=== PATIENT | female | born 1970 | race African-American/Black ===

== ENCOUNTER 2016-09-27 06:41 | Inpatient (IN) | payer BC ==
[2016-09-26 10:37] VITALS: BMI 47.9
[2016-09-27] MEDS ORDERED: MIDAZOLAM HCL 2 MG/2 ML SINGLE DOSE VIAL ONE (08:00)
[2016-09-27] MEDS ORDERED: PROPOFOL 20 ML ONE (08:06)
[2016-09-27] MEDS ORDERED: ROCURONIUM BROMIDE 50 MG/5 ML VIAL ONE ×2 (08:07→09:02)
[2016-09-27] MEDS ORDERED: BUPIVACAINE HCL/PF 0.5% (5MG/ML) 10 ML VIAL ONE (08:18)
[2016-09-27] MEDS ORDERED: ceFAZolin SODIUM 1 GM VIAL ONE (08:40)
[2016-09-27] MEDS ORDERED: DEXAMETHASONE SOD PHOSPHATE 4 MG/1 ML VIAL ONE ×2 (08:40→10:36)
[2016-09-27] MEDS ORDERED: ceFAZolin SODIUM 1 GM VIAL IVPB ONE (08:45)
[2016-09-27] MEDS ORDERED: HYDROmorphone HCL/PF 1 MG/ML VIAL (FOR PYXIS CHARGING ONLY) ONE ×2 (09:00→09:17)
[2016-09-27] MEDS ORDERED: METOPROLOL TARTRATE 5 MG/5 ML VIAL ONE (09:19)
[2016-09-27] MEDS ORDERED: BUPIVACAINE HCL/PF 0.5% (5MG/ML) 10 ML VIAL IJ ONE ×2 (09:33→10:34)
[2016-09-27] MEDS ORDERED: hydrALAZINE HCL 20 MG/ML VIAL ONE (09:44)
[2016-09-27] MEDS ORDERED: ONDANSETRON 4 MG/2 ML VIAL IVPB PRN (10:46)
[2016-09-27] MEDS ORDERED: METOCLOPRAMIDE HCL INJECTION 10 MG/2 ML VIAL IVPB PRN (10:48)
[2016-09-27] MEDS ORDERED: SODIUM CHLORIDE 1,000 ML IV SCH (11:00)
[2016-09-27] MEDS ORDERED: LACTATED RINGERS SOLUTION 1,000 ML IV SCH (11:15)
[2016-09-27] MEDS ORDERED: HYDROmorphone HCL CARPU-JECT 2 MG/1 ML DISP.SYRIN ONE ×2 (11:50→17:12)
[2016-09-27] MEDS: HYDROmorphone HCL CARPU-JECT 1 MG/1 ML DISP.SYRIN IVPUSH PRN ×4 (11:52→15:00)
--- NOTE | 2016-09-27 11:56 | HP ---
DATE OF ADMISSION: 09/27/2016 CHIEF COMPLAINT: 1. Morbid obesity. 2. Epigastric pain. 3. GE reflux disease. HISTORY OF PRESENT ILLNESS: The patient is a 46-year-old woman with a history of morbid obesity for many years despite multiple attempts at dietary weight loss. She received a gastric band years ago, but most recently in the last year to 15 months, it has been causing her epigastric pain and reflux and, therefore, needs to be removed and have the stomach converted to a sleeve gastrectomy. PAST MEDICAL HISTORY: Noncontributory. PAST SURGICAL HISTORY: 1. Insertion of Lap-Band. 2. section. 3. Abdominoplasty. 4. Knee surgery. MEDICATIONS: The patient takes no medications except calcium and multivitamin. ALLERGIES: The patient has no allergies. REVIEW OF SYSTEMS: Neurologic: Within normal limits. Pulmonary: No wheezing, no shortness of breath. Cardiovascular: Within normal limits. Gastrointestinal: Epigastric pain occasionally. Also GE reflux disease. Musculoskeletal: Within normal limits. PHYSICAL EXAMINATION: General: Awake, alert in no acute distress. HEENT: No masses. Lungs: Clear bilaterally. Heart: Regular sinus rhythm. Abdomen: Multiple incisions from previous surgeries all well healed. There are noted to be 2 small areas below the umbilicus in the midline, which were denuded areas of skin approximately 1/2 cm in oval shape, 1/2 cm in diameter. Extremities: Within normal limits. IMPRESSION: 1. Morbid obesity. 2. Malfunctioning gastric band causing epigastric pain and gastroesophageal reflux. PLAN: Take to the OR for laparoscopic vertical sleeve gastrectomy plus removal of gastric band plus subcutaneous port component. Lizett [id number]
--- NOTE | 2016-09-27 12:04 | OP ---
DATE OF OPERATION: 09/27/2016 PREOPERATIVE DIAGNOSES: 1. Morbid obesity. 2. Epigastric pain. 3. Gastroesophageal reflux disease. 4. Mechanical complication of implantable device secondary to gastric band. POSTOPERATIVE DIAGNOSES: 1. Morbid obesity. 2. Epigastric pain. 3. Gastroesophageal reflux disease. 4. Mechanical complication of implantable device secondary to gastric band. 5. Hepatomegaly. 6. Fibrous capsule around the stomach. PROCEDURE PERFORMED: 1. Laparoscopic vertical sleeve gastrectomy. 2. Wedge biopsy of the left lobe of the liver. 3. Removal of gastric band plus subcutaneous port component. 4. Excision of fibrous capsule around the stomach. 5. Diagnostic laparoscopy. OPERATING SURGEON: José Miguel Hutchins MD OXYGEN TANK FILLER: Fernando Cardenas MD ANESTHESIA: General: OPERATIVE PROCEDURE: The patient was brought into the operating room, placed on the operating table in the supine position. All precautions were taken initially including padding for the back and the feet, and Venodyne boots were placed on both lower extremities. At that point the abdomen was prepped and draped in the usual manner. A Veress needle was placed in the left upper quadrant, and a pneumoperitoneum established. Number 12 bladeless trocar was placed in the left upper quadrant. Through that trocar, laparoscopic camera was placed. Under direct vision, a number 15 bladeless trocar was placed in the midline in a supraumbilical position followed by a number 5 bladeless trocar in the right upper quadrant, and a number 5 bladeless trocar below the left costal margin. A Gabriela liver retractor was then placed in the epigastrium to retract left lobe of liver. Patient was then placed in 20-degree reverse Trendelenburg position. The left lobe was noted to be extremely enlarged and difficult to retract because it was heavy and because the liver retractor only retracted a portion of it. Because of this, a wedge biopsy was performed on the liver. With the electrocautery turned high first the capsule of the liver on the edge of the left lobe and then the parenchyma was divided with the electrocautery until a wedge was taken, sent off the field as a specimen to Pathology. The liver parenchyma had very minor bleeding and it was controlled easily with the electrocautery. After the patient was placed in 20-dergree reverse Trendelenburg by Anesthesia, the band tubing was noted leading to the band around the stomach. There was some scar tissue note don the lesser curvature with a fibrous capsule over the band. This was divided with electrocautery and the band was now open and removed from around the stomach and sent off the field as specimen to Pathology. Attention was now directed where there was a wrap going to the lesser curvature. This wrap or capsulotomy was performed with sharp dissection with a scissor until the entire stomach was now back to its original form. At this point the pylorus was noted on the distal stomach and 6 cm were measured proximally. Her on the greater curvature the operating surgeon lifted the stomach toward the anterior abdominal wall as the ophthalmic surgical assistant surgeon retracted the gastrocolic ligament inferiorly. The LigaSure device was used to divide the gastrocolic ligament off the greater curve of the stomach. This continued in a superior and vertical direction as the ophthalmic surgical assistant surgeon continue to retract the short gastric vessels toward the patient's left side as the operating surgeon retracted the stomach to the patient's right side. The LigaSure continued to divide the short gastric vessels until the final short gastric vessels between the proximal fundus and the superior poles were divided. At this juncture anesthesia advance a No. 40 bougie. With the bougie held along the lesser curvature a series of cristina were performed,, the first 2 being black load 6-cm in length along the bougie. This was followed by a series of purple load cristina 6-cm in length until the final staple was fired in the left upper quadrant and the greater curve was now completely detached from the lesser curve. It should be noted that prior to firing each staple both the anterior and posterior pena were checked that they were intact and equal. In the area of the esophagogastric junction approximately 1 to 1.5 cm of serosa remained. Saline was now placed around the staple line. Anesthesia inserted air into the bougie which showed the entire stomach distended down to the pylorus. No obstruction and no leaks were noted. At this juncture the greater curve was removed through the number 15 trocar site and off the field as specimen. The No. 15 and No. 12 trocars were closed with endo closure device to prevent internal hernia and bleeding and under direct visualization all trocars were removed and the pneumoperitoneum was released. The right upper quadrant port site was now opened with a scalpel and dissection continue with electrocautery down to the fibrous capsule on the right upper quadrant port. The fibrous capsule was dissected off the port and the port was removed from the right anterior rectus muscle and sent off the field as specimen. At this point the port sites and the No. 15 trocar site were closed with 3-0 Vicryl in the subcutaneous tissue then all trocar sites received 0.25% Marcaine and were closed with 4-0 Biosyn in subcuticular fashion. Dressings were applied. Patient awoken from anesthesia and sent out of the operating room to recovery room in stable condition. ESTIMATED BLOOD LOSS: 30 mL. DISPOSITION: The patient transferred to the recovery room in stable condition. Lizett [id number]
[2016-09-27 12:17] LABS: MCHC 31.8 g/dl (32.0-36.0); MEAN CELL VOLUME 87.9 fl (80-96); PLATELET COUNT 227 K/MM3 (134-434); RDW 13.1 % (11.6-15.6); WHITE BLOOD COUNT 18.3 K/mm3 (4.0-10.0)
[2016-09-27 12:31] LABS: ALBUMIN 3.6 g/dl (3.4-5.0); ALK PHOS 62 U/L (45-117); ANION GAP 9 (8-16); BILIRUBIN,TOTAL 0.2 mg/dL (0.2-1.0); CALCIUM 8.6 mg/dL (8.5-10.1); CO2 24 mmol/L (21-32); CREATININE 1.1 mg/dL (0.55-1.02); SGOT/AST 69 U/L (15-37); SGPT/ALT 70 U/L (12-78); TOT PROT 6.9 g/dl (6.4-8.2)
[2016-09-27 12:36] LABS: GLUCOSE,RANDOM 305 mg/dL (74-106)
[2016-09-27] MEDS ORDERED: METOCLOPRAMIDE HCL INJECTION 10 MG/2 ML VIAL ONE (17:03)
[2016-09-27] MEDS: HYDROmorphone HCL CARPU-JECT 1 MG/1 ML DISP.SYRIN IVPB PRN (17:15)
[2016-09-27] MEDS: FAMOTIDINE 20 MG/50 ML IVPB 50 ML IVPB SCH (22:56)
[2016-09-27] MEDS: ENOXAPARIN NA (PORCINE) 40 MG/0.4 ML DISP.SYRIN SQ SCH (22:57)
[2016-09-28] MEDS: HYDROmorphone HCL CARPU-JECT 1 MG/1 ML DISP.SYRIN IVPB PRN ×4 (02:42→17:55)
[2016-09-28 07:39] LABS: MCH 28.1 pg (25.7-33.7); MCHC 31.9 g/dl (32.0-36.0); MEAN PLT VOLUME 10.6 fl (7.5-11.1); PLATELET COUNT 204 K/MM3 (134-434); RDW 12.5 % (11.6-15.6); WHITE BLOOD COUNT 15.9 K/mm3 (4.0-10.0)
[2016-09-28 08:27] LABS: ALBUMIN 3.4 g/dl (3.4-5.0); ANION GAP 10 (8-16); CALCIUM 9.1 mg/dL (8.5-10.1); CO2 23 mmol/L (21-32); GLUCOSE,RANDOM 132 mg/dL (74-106)
[2016-09-28 08:30] LABS: ALK PHOS 49 U/L (45-117); BILIRUBIN,TOTAL 0.7 mg/dL (0.2-1.0); CREATININE 0.7 mg/dL (0.55-1.02); SGOT/AST 42 U/L (15-37); SGPT/ALT 56 U/L (12-78); TOT PROT 6.6 g/dl (6.4-8.2)
[2016-09-28] MEDS: ENOXAPARIN NA (PORCINE) 40 MG/0.4 ML DISP.SYRIN SQ SCH ×2 (09:28→21:30)
[2016-09-28] MEDS: FAMOTIDINE 20 MG/50 ML IVPB 50 ML IVPB SCH ×2 (09:28→21:30)
[2016-09-28] MEDS ORDERED: oxyCODONE HCL 5 MG TABLET PO PRN (12:05)
[2016-09-28] MEDS ORDERED: ACETAMINOPHEN 325 MG TABLET (FP) PO PRN (12:05)
[2016-09-28] MEDS ORDERED: SODIUM CHLORIDE 1,000 ML IV SCH (12:15)
--- NOTE | 2016-09-28 12:29 | PN ---
Progress Note (short form) - Note Progress Note: Covering for Dr Hutchins POD 1 Laparoscopic lysis of adhesions, removal of lap band, port and components, capsulotomy, vertical sleeve gastrectomy Pain controlled No nausea/vomiting Vital Signs Period Temp Pulse Resp BP Sys/Fam Pulse Ox Last 24 Hr 97.8 F-99.2 F 78-115 14-26 120-154/60-94 94-100 Abd soft, dressings intact CBC, BMP 09/28/16 05:35 09/28/16 05:35 GI series- no leak/obstruction Clears OOB Discharge planning
--- NOTE | 2016-09-28 13:42 | PN ---
Progress Note (short form) - Note Progress Note: Anesthesia post op note,POD#1 S/P Laparoscopic band removal, gastric sleeve and liver biopsy under GETA. Pat seen and examined. VSS. No apparent post anesthesia complications.
[2016-09-29] MEDS: HYDROmorphone HCL CARPU-JECT 1 MG/1 ML DISP.SYRIN IVPB PRN ×2 (04:58→08:43)
[2016-09-29] MEDS: FAMOTIDINE 20 MG/50 ML IVPB 50 ML IVPB SCH (09:23)
[2016-09-29] MEDS: ENOXAPARIN NA (PORCINE) 40 MG/0.4 ML DISP.SYRIN SQ SCH (09:24)
[2016-09-29 11:37] VITALS: BP 122/73; PULSE 78; TEMP 98.7
--- NOTE | 2016-10-02 15:02 | PATH ---
Surgical Pathology Report Patient Name: MARY ADAMSON Med. Rec. #: [id number] /Age/Gender: 1970 (Age: 46) / F Account: [id number] Location: 4 W TELEMETRY U Taken: 09/27/2016 Received: 09/27/2016 Reported: 10/02/2016 Physicians: José Miguel Hutchins M.D. Specimen(s) Received A: GREATER CURVATURE STOMACH B: GASTRIC BAND C: LIVER BIOPSY Clinical History Morbid obesity Final Diagnosis A. STOMACH, GREATER CURVATURE, LAPAROSCOPIC VERTICAL SLEEVE GASTRECTOMY: PORTION OF STOMACH WITH FOCALLY ACTIVE MODERATE TO MARKED CHRONIC GASTRITIS. IMMUNOSTAIN FOR H. PYLORI IS POSITIVE FOR ORGANISMS (MANY ORGANISMS). B. 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 C. LIVER, LEFT LOBE, WEDGE BIOPSY: STEATOHEPATITIS WITH MODERATE PORTAL AND LOBULAR NECROINFLAMMATORY ACTIVITY; STEATOSIS (~30%); FOCAL MILD BILE DUCT INJURY. PERIVENULAR, PERISINUSOIDAL, AND PORTAL FIBROSIS (LIMITED ASSESSMENT DUE TO SUBCAPSULAR NATURE OF THE BIOPSY). SEE COMMENT. Comment: Although the assessment of fibrosis is limited in the subcapsular specimen, the liver architecture appears to be largely preserved. The portal tracts show mild to moderate inflammation comprised of lymphocytes and histiocytes with occasional neutrophils and eosinophils. No significant increase in plasma cells is noted; only focal minimal interface activity is seen. Focal mild bile duct injury is noted. No significant bile duct proliferation is observed. No portal granulomas are identified. The lobules show patchy moderate inflammation comprised of lymphocytes and neutrophils. Few acidophil bodies are noted. No definitive Gloria hyalin is identified. No significant hepatocyte ballooning is seen. No lobular granulomas are seen. There is predominantly macrovesicular steatosis present in approximately 30% of the biopsy material. Trichrome stain highlights perivenular, perisinusoidal and portal fibrosis. Iron stain shows no siderosis. While the findings are predominantly of steatohepatitis with moderate activity and steatosis, portal inflammation with focal bile duct injury is also noted. The etiology of steatohepatitis includes alcohol and non-alcohol induced liver injuries, such as drug/toxin and metabolic conditions. An additional process causing portal inflammation with focal bile duct injury, such as drug toxicity, viral hepatitis, or, although less likely, mild PBC cannot be excluded. Clinical and serological correlations are suggested to exclude viral or autoimmune disease. Electronically Signed Smith Shultz M.D. Gross Description A. Received in formalin, labeled "greater curvature of stomach" is a 199 gram, 27.0 x 5.0 x 4.5 cm. portion of stomach with a stapled margin of resection. The serosa is rodriguez-lu with minimal attached fat. The mucosa is rodriguez-red with normal folds. No mucosal masses are identified. [employer] sections are submitted in one cassette. B. Received fresh labeled "old gastric band" is a 4.5 cm in diameter x 1.8 cm in depth white, circular device, consistent with a gastric band. The bands displays a 38 cm in length portion of white tubing extending from one aspect. Also received within the same container is a 3 cm in diameter x 1.5 cm in depth white, circular device, consistent with a port. The port displays a 15.5 cm in length portion of tubing extending from one aspect. No soft tissue is present. No sections are submitted, gross only. C. Received in formalin labeled "left wedge liver biopsy" is a 2.0 x 1.0 x 0.9 cm rodriguez, irregular portion of soft tissue, consistent with a portion of liver. The specimen is trisected and entirely submitted in one cassette. 09/27/2016 [facility]09/27/2016
== END 2016-09-29 11:24 | disposition home or self-care (01) | DRG 327 ==
LOC: JSAMEDAYSX 06:41 → J4W 19:20
PROVIDERS: ADMIT Surgery; ATTEND Surgery
PROC: 0FB23ZX Excision of Left Lobe Liver, Percutaneous Approach, Diagnostic (ICD-10-PCS; 2016-09-27)
PROC: 0DB64Z3 Excision of Stomach, Percutaneous Endoscopic Approach, Vertical (ICD-10-PCS; principal; 2016-09-27 08:00)
PROC: 0DP64CZ Removal of Extraluminal Device from Stomach, Percutaneous Endoscopic Approach (ICD-10-PCS; 2016-09-27 08:00)
DX: K95.09 Other complications of gastric band procedure (principal); Z68.42 Body mass index [BMI] 45.0-49.9, adult; E66.01 Morbid (severe) obesity due to excess calories; K21.9 Gastro-esophageal reflux disease without esophagitis; R16.0 Hepatomegaly, not elsewhere classified; K29.50 Unspecified chronic gastritis without bleeding; Y83.8 Other surgical procedures as the cause of abnormal reaction of the patient, or of later complication, without mention of misadventure at the time of the procedure
CPT/HCPCS: 36415; 74241-TC; 80053; 84703; 85027; 86850; 86900; 86901; 88300-TC; 88305-TC; 88307-TC; 94760